=== PATIENT | female | born 1965 | race African-American/Black ===

== ENCOUNTER 2016-07-14 19:21 | Emergency (ER) | payer MEDICARE ==
[~2016-07-14 19:21] MED LIST: BUPROPION HCL150 M2 PO; COZAAR100 MG PO; FLAGYL PO; FLEXERIL10 MG PO; HUMALOG100 U/M2; HYDROCHLOROTH12.5 MG PO; HYDROXYZINE HCL25 M1; LANTUS SOLOSTAR3 ML; METFORMIN HCL500 M1 PO; NORVASC10 MG PO; OMEPRAZOLE20 M1 PO; OXYCONTIN PO; PERCOCET 10/3251 TAB PO; PRAVASTATIN SOD40 MG PO; PRINIVIL40 MG PO; PROAIR HFA8.5 GM IH; SYMBICORT 160/4.6 GM INH; TEMAZEPAM30 MG PO; VITAMIN D32000 UNI1 PO
[2016-10-18] MEDS ORDERED: GLIMEPIRIDE2 MG PO (10:42)
[2016-10-18] MEDS ORDERED: INVOKANA300 MG PO (10:42)
[2016-10-18] MEDS ORDERED: JANUVIA PO (10:43)
[2016-10-18] MEDS ORDERED: REMERON15 MG PO (10:44)
[2016-10-18] MEDS ORDERED: GABAPENTIN300 MG PO (10:45)
[2016-12-04] MEDS ORDERED: LYRICA50 MG (11:33)
== END 2016-07-14 19:30 | disposition left against medical advice (07) ==
LOC: CED 19:21
DX: Z53.21 Procedure and treatment not carried out due to patient leaving prior to being seen by health care provider (principal)

== ENCOUNTER 2016-07-14 23:59 | Emergency (ER) | payer OTHER ==
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
--- NOTE | ~2016-07-14 | EKG ---
PATIENT: VALENCIA AMIN UNIT #: [id number] Ventricular Rate: 103 BPM Atrial Rate: 103 BPM P-R Interval: 158 ms QRS Duration: 76 ms Q-T Interval: 376 ms QTC Calculation(Bezet): 492 ms P [place]: 68 degrees Calculated R [place]: -21 degrees Calculated T [place]: 37 degrees Diagnosis Line: Sinus tachycardia Diagnosis Line: Otherwise normal ECG Diagnosis Line: When compared with ECG of 21-JUN-2015 09:15, Diagnosis Line: Nonspecific T wave abnormality, improved in Diagnosis Line: Anterolateral leads Diagnosis Line: Confirmed by AUSTIN BHAKTA MD ([id number]) on 07/16/2016 Diagnosis Line: 10:56:33 PM INTERPRETING MD: LIVIA SUAREZ
[2016-10-18] MEDS ORDERED: INVOKANA300 MG PO (10:42)
[2016-10-18] MEDS ORDERED: GLIMEPIRIDE2 MG PO (10:42)
[2016-10-18] MEDS ORDERED: JANUVIA PO (10:43)
[2016-10-18] MEDS ORDERED: REMERON15 MG PO (10:44)
[2016-10-18] MEDS ORDERED: GABAPENTIN300 MG PO (10:45)
[2016-12-04] MEDS ORDERED: LYRICA50 MG (11:33)
== END 2016-07-15 01:46 | disposition home or self-care (01) ==
LOC: CED 23:59
DX: S13.4XXA Sprain of ligaments of cervical spine, initial encounter (principal); S33.5XXA Sprain of ligaments of lumbar spine, initial encounter; S70.02XA Contusion of left hip, initial encounter; S70.01XA Contusion of right hip, initial encounter; F11.23 Opioid dependence with withdrawal; V49.00XA Driver injured in collision with unspecified motor vehicles in nontraffic accident, initial encounter; I10 Essential (primary) hypertension; Z88.0 Allergy status to penicillin; Z88.8 Allergy status to other drugs, medicaments and biological substances; Z91.040 Latex allergy status
CPT/HCPCS: 72100; 72125; 72170; 93005; 96372; 99284; J1885

== ENCOUNTER → 2016-10-18 | Outpatient (CLI) | payer MEDICARE ==
[~2016-10-18] MED LIST changes: +GABAPENTIN300 MG PO; +GLIMEPIRIDE2 MG PO; +INVOKANA300 MG PO; +JANUVIA PO; +LYRICA50 MG; +REMERON15 MG PO
--- NOTE | ~2016-10-18 | CR63 ---
[facility]. [facility] A Service of [facility] & [facility] RADIOLOGY TEXT RESULTS PATIENT: VALENCIA AMIN LOCATION: [facility] : 69 UNIT #: [id number] AGE: [address]: Jairo Mistry MD SEX: F ORDER DR: [id number] [facility] [address] [place], [place] [address] [id number] O MR#: [id number] Acc #: [id number] NAME: VALENCIA AMIN : 1965 SEX: F STUDY DATE/TIME: 10/18/2016 11:23 UNIT: [facility] ROOM: STUDY DESCRIPTION: CR Chest 2 View Attending Physician: Jairo Mistry M.D. Referring Physician: Jairo Mistry M.D. Ordering Physician: Jairo Mistry M.D. Primary Care Physician: Ansley Nunn Aprn MEDICAL IMAGING REPORT This report is preliminary unless electronic signature is present EXAM Chest 10/18/2016 HISTORY 51-year-old woman preop clearance for left shoulder manipulation and cortisone injection. COMPARISON Chest 06/21/2015. FINDINGS Two-view chest demonstrates normal cardiac size and configuration. Hilar structures and mediastinal contours are preserved. Bilateral lungs are expanded and clear. Large body habitus noted. IMPRESSION Negative and stable chest. Dictated by... Ricardo Sheppard M.D. THIS IS AN ELECTRONICALLY VERIFIED REPORT Ricardo Sheppard M.D. at 10/19/2016 8:12 AM HEIDI/jaspreet TD: 10/19/2016 06:39 JOB #: [id number] Ansley Nunn Aprn MEDICAL IMAGING REPORT Page 1 of 1 COPY
--- NOTE | ~2016-10-18 | EKG ---
PATIENT: VALENCIA AMIN UNIT #: [id number] Ventricular Rate: 85 BPM Atrial Rate: 85 BPM P-R Interval: 166 ms QRS Duration: 76 ms Q-T Interval: 404 ms QTC Calculation(Bezet): 480 ms P [place]: 69 degrees Calculated R [place]: -27 degrees Calculated T [place]: 17 degrees Diagnosis Line: Normal sinus rhythm Diagnosis Line: Prolonged QT Diagnosis Line: Abnormal ECG Diagnosis Line: When compared with ECG of 14-JUL-2016 20:02, Diagnosis Line: No significant change was found Diagnosis Line: Confirmed by KYLE PIÑA MD ([id number]) on 10/18/2016 Diagnosis Line: 8:39:46 PM INTERPRETING MD: AYANA SUAREZ
[2016-10-18 11:18] LABS: HEMATOCRIT 39.7 % (35.0-45.0); HEMOGLOBIN 12.8 gm/dL (12.0-16.0); MEAN CELL VOLUME 88.9 FL (83-96); MEAN CORPUSCULAR HEMOGLOBIN 28.7 PG (28-34); MEAN CORPUSCULAR HGB CONC 32.3 g/dL (30-36); MEAN PLATELET VOLUME 7.4 FL (6.5-11.5); RED BLOOD COUNT 4.47 X10e (3.90-5.30); RED CELL DISTRIBUTION WIDTH 14.7 % (11.0-15.5); WHITE BLOOD COUNT 9.8 X10e3 (4.0-10.5)
[2016-10-18 11:20] LABS: URINE APPEARANCE CLEAR; URINE BILIRUBIN NEG (NEG); URINE BLOOD NEG (NEG); URINE COLOR YELLOW; URINE GLUCOSE NEG (NEG); URINE KETONE NEG (NEG); URINE LEUKOCYTE ESTERASE 1+ (NEG); URINE NITRATE POS (NEG); URINE PROTEIN NEG (NEG); URINE SPECIFIC GRAVITY 1.026 (1.003-1.035); URINE UROBILINOGEN 0.2 MG/DL (NEG)
[2016-10-18 11:24] LABS: CULTURE INDICATED? YES; URBCS1 AUWI 0-2 /[HPF] (0-2); URINE BACTERIA AUWI 4+ (NEGATIVE); URINE SQUAMOUS EPITHELIAL CELL MOD /[HPF]
[2016-10-18 11:25] LABS: URINE SOURCE CLEAN CATCH
[2016-10-18 11:59] LABS: BUN/CREATININE RATIO 23.33; CALCIUM SERUM 9.6 mg/dL (8.4-10.2); CREATININE SERUM 0.6 mg/dL (0.6-1.4); GLOM FILT RATE Estimated 124.1 mL/min (>60); POTASSIUM 4.1 mmol/L (3.5-5.1)
== END | disposition home or self-care (01) ==
LOC: CAMB 09:58
PROVIDERS: Orthopaedic Surgery
DX: Z01.818 Encounter for other preprocedural examination (principal); M75.02 Adhesive capsulitis of left shoulder; R94.31 Abnormal electrocardiogram [ECG] [EKG]
CPT/HCPCS: 36415; 71020; 80048; 81003; 85027; 87086; 87088; 87186; 93005

== ENCOUNTER → 2016-12-06 | Day surgery (SDC) | payer OTHER, MEDICARE ==
--- NOTE | ~2016-12-06 | OR ---
Unit #: [id number] #: [id number] Patient: VALENCIA AMIN [id number] [address] [place], [place] [address] [id number] O MR#: [id number] NAME: VALENCIA AMIN ROOM: Date of Procedure: 12/06/2016 Admission Date: 12/06/2016 Surgeon: Jairo Mistry M.D. : 1965 Attending Physician: Jairo Mistry M.D. Primary Care Physician: Ansley Nunn PROCEDURE OPERATIVE NOTE PREOPERATIVE DIAGNOSIS Frozen left shoulder in a patient with diabetes. POSTOPERATIVE DIAGNOSIS Frozen left shoulder in a patient with diabetes. OPERATION PERFORMED 1. Manipulation left shoulder. 2. Injection left shoulder with 10 mL of 0.25% Marcaine with Epi after clearance of the medicine as well as the volume with anesthesia. TECHNIQUE The patient was brought into the operating room. She previously received a block by anesthesia for the shoulder and her right range of motion on her unaffected arm was done first. Flexion to 170, abduction 100, external rotation with the shoulder at 90 was 80, internal rotation of the shoulder at 90 degrees, abduction was 70 and adduction was 30 degrees. Left pre-manipulation: Flexion 150, abduction 70, external rotation at 90 was 70, internal rotation at 90 was 45, and adduction was 20. Left post manipulation: Flexion was 180, abduction was 110, external rotation at 90 was 80, internal rotation at 90 was 80, and adduction was 45. There was no cogwheeling on manipulation. Firm but gentle pressure was applied. The patient tolerated this well, had good stability and no crepitation on range of motion after the procedure. The left shoulder was then prepped with Betadine solution by the attending surgeon in a sterile manner and then 10 mL of 0.25% Marcaine with epinephrine again, after clearance and okay for the volume and the medication by anesthesia and her left glenohumeral joint was injected for postop analgesia. The patient tolerated this well and is being sent to therapy directly from the hospital when she is able to travel. She will have an office appointment. Dictated by... Jairo Mistry M.D. Unit #: [id number] #: [id number] Patient: VALENCIA AMIN WEM/df TD: 12/07/2016 06:58 JOB #: [id number] PROCEDURE OPERATIVE NOTE Page 1 of 1 X Jairo Mistry MD PROCEDURE OPERATIVE NOTE
[2016-12-06 08:52] LABS: BASOPHIL# 0.1 X10e3 (0-0.3); DIFF IND NO; EOSINOPHIL# 0.2 X10e3 (0-0.7); EOSINOPHIL% 2.7 % (0.0-7.0); HEMATOCRIT 36.8 % (35.0-45.0); HEMOGLOBIN 12.3 gm/dL (12.0-16.0); LYMPHOCYTE# 2.1 X10e3 (1.0-3.5); LYMPHOCYTE% 31.1 % (17.0-45.0); MEAN CELL VOLUME 88.8 FL (83-96); MEAN CORPUSCULAR HEMOGLOBIN 29.6 PG (28-34); MEAN CORPUSCULAR HGB CONC 33.4 g/dL (30-36); MEAN PLATELET VOLUME 7.2 FL (6.5-11.5); MONOCYTE# 0.6 X10e3 (0-1.0); MONOCYTE% 8.4 % (3.0-12.0); NEUTROPHIL# 3.9 X10e3 (1.5-7.1); NEUTROPHIL% 56.8 % (40-75); PLATELET COUNT 374 X10e3 (140-420); RED BLOOD COUNT 4.14 X10e (3.90-5.30); RED CELL DISTRIBUTION WIDTH 14.7 % (11.0-15.5); WHITE BLOOD COUNT 6.8 X10e3 (4.0-10.5)
[2016-12-06 09:05] LABS: URINE SOURCE CLEAN CATCH
[2016-12-06 09:15] LABS: URINE APPEARANCE CLEAR; URINE BILIRUBIN NEG (NEG); URINE BLOOD NEG (NEG); URINE COLOR YELLOW; URINE GLUCOSE >1000 MG/DL (NEG); URINE KETONE NEG (NEG); URINE LEUKOCYTE ESTERASE NEG (NEG); URINE NITRATE NEG (NEG); URINE PROTEIN NEG (NEG); URINE SPECIFIC GRAVITY 1.034 (1.003-1.035)
[2016-12-06 09:25] LABS: CULTURE INDICATED? NO
[2016-12-06 09:33] LABS: BUN/CREATININE RATIO 16.25; CALCIUM SERUM 9.3 mg/dL (8.4-10.2); CREATININE SERUM 0.8 mg/dL (0.6-1.4); GLOM FILT RATE Estimated 100.4 mL/min (>60); POTASSIUM 3.9 mmol/L (3.5-5.1)
== END | disposition home or self-care (01) ==
LOC: CSUR 11-29 12:00
PROVIDERS: Orthopaedic Surgery
DX: M75.02 Adhesive capsulitis of left shoulder (principal); E11.9 Type 2 diabetes mellitus without complications; I10 Essential (primary) hypertension; K21.9 Gastro-esophageal reflux disease without esophagitis; E78.5 Hyperlipidemia, unspecified; J45.909 Unspecified asthma, uncomplicated; Z87.440 Personal history of urinary (tract) infections; Z87.891 Personal history of nicotine dependence; Z88.0 Allergy status to penicillin; Z88.8 Allergy status to other drugs, medicaments and biological substances; Z91.040 Latex allergy status; Z90.710 Acquired absence of both cervix and uterus; Z98.890 Other specified postprocedural states; Z79.899 Other long term (current) drug therapy; Z79.84 Long term (current) use of oral hypoglycemic drugs; Z79.51 Long term (current) use of inhaled steroids
CPT/HCPCS: 80048; 81003; 82947; 85025; J2250; J2795; J3010